=== PATIENT | female | born 1985 | race Caucasian/White ===

== ENCOUNTER 2019-09-13 12:25 | Emergency (ER) | payer SELFPAY ==
[~2019-09-13] VITALS: Ht 165.1 cm; Wt 64.5 kg
[~2019-09-13 12:25] MED LIST: AMOX/K CLAV875 M1 PO; AUGMENTIN500TAB PO; LORTAB 7.5 PO; ULTRAM50 M1 PO; ULTRAM50 MG PO
[2019-09-13] MEDS ORDERED: FAMCICLOVIR250 MG PO (13:03)
[2019-09-13 13:09] VITALS: BP 119/64
== END 2019-09-13 13:09 | disposition home or self-care (01) | DRG 596 ==
LOC: ED 12:25
DX: B02.9 Zoster without complications (principal)